=== PATIENT | female | born 2000 | race Caucasian/White ===

== ENCOUNTER 2021-03-13 10:51 | Inpatient (IN) | payer OTHER ==
[2021-03-13] MEDS ORDERED: Iopamidol 370 76% 100 ML VIAL ONE (12:27)
[2021-03-13] MEDS ORDERED: hydrALAZINE 20 MG/ML VIAL SLOW IVP PRN (13:13)
[2021-03-13] MEDS ORDERED: Meclizine HCl 12.5 MG TAB PO PRN (13:16)
[2021-03-13] MEDS: Ondansetron PF 4 MG/2 ML Vial IVP PRN ×2 (14:51→15:08)
[2021-03-13 15:37] VITALS: BMI 24.1
[2021-03-13] MEDS ORDERED: Promethazine HCl 12.5 MG in Sodium Chloride 0.9% 50 ML IVPB SCH (17:30)
[2021-03-13] MEDS ORDERED: Aspirin 300 MG Suppository PR SCH (17:40)
[2021-03-13] MEDS: Sodium Chloride 0.9% 1,000 ML IV SCH (17:40)
[2021-03-13] MEDS ORDERED: Aspirin 81 mg Enteric Coated Tablet PO SCH (17:45)
[2021-03-13] MEDS: Promethazine HCl 12.5 MG in Sodium Chloride 0.9% 50 ML IVPB PRN (23:42)
[2021-03-14 05:50] LABS: Cardiac Risk 3.2 (Less than 4.5)
[2021-03-14] MEDS ORDERED: Cepastat Lozenges 1 LOZ PO PRN (05:58)
[2021-03-14] MEDS ORDERED: Zolpidem Tartrate 5 MG TAB PO PRN (05:58)
[2021-03-14] MEDS ORDERED: Senokot S 8.6-50 MG TAB PO PRN (05:58)
[2021-03-14] MEDS ORDERED: Artificial Tear Sol 15 ML BOT EA EYE PRN (05:58)
[2021-03-14] MEDS ORDERED: Calcium Carbonate 500 MG ChewTAB PO PRN (05:58)
[2021-03-14] MEDS ORDERED: Bisacodyl 5 MG TAB PO PRN (05:58)
[2021-03-14] MEDS ORDERED: GUAIFENESIN SF SOLN 200 MG/10 ML UDCUP PO PRN (05:58)
[2021-03-14] MEDS ORDERED: Sodium Chloride 0.65% Nasal 44 ML BOT EA NARE PRN (05:58)
[2021-03-14] MEDS ORDERED: Hydrocerin (Eucerin) Cream 120 gm Jar TOP PRN (05:58)
[2021-03-14] MEDS ORDERED: Loratadine 10 MG TAB PO PRN (05:58)
[2021-03-14] MEDS ORDERED: Loperamide HCl 2 MG CAP PO PRN (05:58)
[2021-03-14] MEDS: Sodium Chloride 0.9% 1,000 ML IV SCH ×2 (06:36→20:45)
[2021-03-14 07:05] LABS: #Lymphocytes 2.7 thou/uL (1.20-3.40); #Monocytes 0.6 thou/uL (0.11-0.59); #Neutrophils 4.6 thou/uL (1.40-6.50); %Basophils 0.6 % (0.0-1.0); %Eosinophils 0.6 % (0.0-10.0); %Monocytes 7.1 % (0.0-10.0); %Neutrophils 57.7 % (42.0-75.0); Hemoglobin 12.1 g/dL (12.0-16.0); Mean Corpuscular HGB CONC 33.3 g/dL (32.0-36.0); Mean Corpuscular Hemoglobin 30.4 pg (27.0-31.0); Mean Corpuscular Volume 91.3 fL (78.0-98.0); Mean Platelet Volume 8.7 fL (7.4-10.4); Platelet Count 215 thou/uL (130-400); RBC Distribution Width 11.3 % (11.5-14.5); Red Blood Cell (RBC) Count 3.98 mill/uL (4.20-5.40); White Blood Cell (WBC) Count 7.9 thou/uL (4.8-10.8)
[2021-03-14 07:26] LABS: ALT (SGPT) 22 U/L (8-55); AST (SGOT) 22 U/L (5-34); Albumin 3.9 g/dL (3.5-5.0); Alkaline Phosphatase 54 U/L (40-110); Anion Gap 11 mmol/L (10-20); BUN (Urea Nitrogen) 10 mg/dL (7.0-18.7); Bilirubin, Total 0.6 mg/dL (0.2-1.2); Calc. Creatinine Clearance 118 mL/min (70-130); Calcium 9.3 mg/dL (7.8-10.44); Carbon Dioxide 27 mmol/L (22-29); Chloride 104 mmol/L (98-107); Globulin 2.4 g/dL (2.4-3.5); Glucose 102 mg/dL (70-105); Potassium 3.8 mmol/L (3.5-5.1); Protein, Total 6.3 g/dL (6.0-8.3); Sodium 138 mmol/L (136-145)
[2021-03-14] MEDS ORDERED: Aspirin 81 mg Enteric Coated Tablet PO SCH (09:00)
[2021-03-14] MEDS: Famotidine 20 MG TAB PO SCH ×2 (09:55→21:50)
[2021-03-14] MEDS: Aspirin 325 MG TAB PO SCH (09:56)
[2021-03-14] MEDS: Promethazine HCl 12.5 MG in Sodium Chloride 0.9% 50 ML IVPB PRN (10:08)
[2021-03-14] MEDS: HYDROcodone/Acetaminophen 5/325 mg Tablet PO PRN (21:49)
[2021-03-14] MEDS: Atorvastatin Calcium 40 MG TAB PO SCH (21:50)
[2021-03-15] MEDS: HYDROcodone/Acetaminophen 5/325 mg Tablet PO PRN ×3 (05:35→20:05)
[2021-03-15] MEDS: Ondansetron PF 4 MG/2 ML Vial IVP PRN ×2 (10:05→20:06)
[2021-03-15] MEDS: Ondansetron ODT 4 MG TAB PO PRN (10:05)
[2021-03-15] MEDS: Famotidine 20 MG TAB PO SCH ×2 (10:06→20:05)
[2021-03-15] MEDS: Aspirin 325 MG TAB PO SCH (10:06)
[2021-03-15] MEDS: Sodium Chloride 0.9% 1,000 ML IV SCH ×2 (16:20→21:17)
[2021-03-15] MEDS: Atorvastatin Calcium 40 MG TAB PO SCH (20:05)
[2021-03-16] MEDS: Sodium Chloride 0.9% 1,000 ML IV SCH (04:47)
[2021-03-16 08:23] VITALS: TEMP 98
[2021-03-16] MEDS: Ondansetron ODT 4 MG TAB PO PRN ×2 (08:45→11:49)
[2021-03-16] MEDS: Famotidine 20 MG TAB PO SCH (08:46)
[2021-03-16] MEDS: Aspirin 325 MG TAB PO SCH (08:46)
[2021-03-16] MEDS: HYDROcodone/Acetaminophen 5/325 mg Tablet PO PRN (08:49)
[2021-03-16 11:04] VITALS: BP 128/80
== END 2021-03-16 11:59 | disposition home or self-care (01) | DRG 64 ==
LOC: NEURO 12:50 → OBSVTOIN 03-14 05:56
PROVIDERS: ADMIT Internal Medicine; ATTEND Internal Medicine
DX: I63.532 Cerebral infarction due to unspecified occlusion or stenosis of left posterior cerebral artery (principal); I77.74 Dissection of vertebral artery; G81.94 Hemiplegia, unspecified affecting left nondominant side; H54.7 Unspecified visual loss; R29.701 NIHSS score 1; Z87.828 Personal history of other (healed) physical injury and trauma
CPT/HCPCS: 36415; 70450; 70496; 70498; 70551; 80053; 80061; 85025; 93306; J2405; J2550; Q0162; Q9967